=== PATIENT | male | born 1995 | race Caucasian/White ===

== ENCOUNTER 2023-04-07 04:42 | Emergency (ER) | payer MEDICAID, SELFPAY ==
[~2023-04-07] VITALS: Ht 182.9 cm; Wt 93.2 kg
[2023-04-07] MEDS ORDERED: SPIR100T3 PO (06:16)
[2023-04-07] MEDS ORDERED: ESTR2TAB3 PO ×2 (06:16)
[2023-04-07] MEDS ORDERED: HOME MED LIST COMPLETE! XX SCH (06:20)
[2023-04-07 07:41] LABS: HEMATOCRIT 44.7 % (42.0-52.0); HEMOGLOBIN 15.4 g/dl (13.5-17.5); MEAN CORPUSCULAR HEMOGLOBIN 31.3 pg (27.0-33.0); MEAN CORPUSCULAR HGB CONC 34.5 g/dl (32.0-36.5); MEAN CORPUSCULAR VOLUME 90.9 fl (80.0-96.0); PLATELET COUNT, AUTOMATED 344 10^3/uL (150-450); RED BLOOD COUNT 4.92 10^6/uL (4.30-6.10); WHITE BLOOD COUNT 10.1 10^3/uL (4.0-10.0)
[2023-04-07 08:04] LABS: ETHYL ALCOHOL (ETHANOL) 0.003 % (0.000-0.010)
[2023-04-07 08:05] LABS: ACETAMINOPHEN LEVEL < 2.0 UG/ML (10.0-20.0)
[2023-04-07 08:06] LABS: ALBUMIN 4.6 G/DL (3.2-5.2); ALKALINE PHOSPHATASE 50 U/L (46-116); ALT/SGPT 22 U/L (7.0-40); AST/SGOT 11 U/L (<34); BILIRUBIN,DIRECT 0.3 MG/DL (<0.4); BILIRUBIN,TOTAL 0.8 MG/DL (0.3-1.2); BLOOD UREA NITROGEN 28 MG/DL (9-23); CALCIUM LEVEL 10.6 MG/DL (8.5-10.1); CARBON DIOXIDE LEVEL 26 MMOL/L (20-31); CHLORIDE LEVEL 102 MMOL/L (98-107); CPK CREATINE PHOSPHOKINASE 182 U/L (46-171); CREATININE FOR GFR 1.05 MG/DL (0.70-1.30); GLOMERULAR FILTRATION RATE > 60.0 (>60); GLUCOSE, FASTING 96 MG/DL (60-100); POTASSIUM SERUM 4.9 MMOL/L (3.5-5.1); SALICYLATE LEVEL < 3.0 MG/DL (<30); SODIUM LEVEL 135 MMOL/L (136-145); TOTAL PROTEIN 7.8 G/DL (5.7-8.2)
[2023-04-07 08:07] LABS: THYROID STIMULATING HORMONE 1.123 uIU/ML (0.55-4.78)
[2023-04-07] MEDS ORDERED: estradioL 1 MG TAB PO SCH ×2 (09:00→21:00)
[2023-04-07 10:48] LABS: BARBITURATES URINE NEGATIVE (NEGATIVE); BENZODIAZEPINES URINE NEGATIVE (NEGATIVE); COCAINE METABOLITE URINE NEGATIVE (NEGATIVE); METHADONE URINE NEGATIVE (NEGATIVE); OPIATES URINE NEGATIVE (NEGATIVE); PHENCYCLIDINE URINE NEGATIVE (NEGATIVE)
[2023-04-07 10:50] LABS: AMPHETAMINES LEVEL URINE POSITIVE (NEGATIVE); CANNABINOIDS URINE POSITIVE (NEGATIVE)
[2023-04-07] MEDS: SPIRONOLACTONE 50 MG TAB PO SCH ×2 (11:27→15:47)
[2023-04-07] MEDS ORDERED: NICOTINE 21MG/24HR 1 EA TRANSDERMAL TD ONE (11:35)
[2023-04-07 18:07] VITALS: BP 106/61; TEMP 97.7; O2SAT 97
== END 2023-04-07 19:02 | disposition home or self-care (01) ==
LOC: M ED 04:42
DX: F19.10 Other psychoactive substance abuse, uncomplicated (principal); U07.1 COVID-19; F17.200 Nicotine dependence, unspecified, uncomplicated; F64.0 Transsexualism; Z88.1 Allergy status to other antibiotic agents; Z88.8 Allergy status to other drugs, medicaments and biological substances; Z79.899 Other long term (current) drug therapy

== ENCOUNTER 2023-04-17 19:09 | Inpatient (IN) | payer MEDICAID, SELFPAY ==
[~2023-04-17] VITALS: Ht 185.4 cm; Wt 90.8 kg
[~2023-04-17 19:09] MED LIST: ESTR2TAB3 PO; SPIR100T3 PO
[2023-04-17 19:56] LABS: HEMATOCRIT 44.5 % (42.0-52.0); MEAN CORPUSCULAR HEMOGLOBIN 30.9 pg (27.0-33.0); MEAN CORPUSCULAR HGB CONC 33.7 g/dl (32.0-36.5); MEAN CORPUSCULAR VOLUME 91.6 fl (80.0-96.0); PLATELET COUNT, AUTOMATED 406 10^3/uL (150-450); RED BLOOD COUNT 4.86 10^6/uL (4.30-6.10); WHITE BLOOD COUNT 15.8 10^3/uL (4.0-10.0)
[2023-04-17 20:15] LABS: BARBITURATES URINE NEGATIVE (NEGATIVE); COCAINE METABOLITE URINE NEGATIVE (NEGATIVE); METHADONE URINE NEGATIVE (NEGATIVE); OPIATES URINE NEGATIVE (NEGATIVE); PHENCYCLIDINE URINE NEGATIVE (NEGATIVE)
[2023-04-17 20:16] LABS: BENZODIAZEPINES URINE NEGATIVE (NEGATIVE)
[2023-04-17 20:18] LABS: ETHYL ALCOHOL (ETHANOL) < 0.003 % (0.000-0.010)
[2023-04-17 20:19] LABS: ACETAMINOPHEN LEVEL < 2.0 UG/ML (10.0-20.0); ALBUMIN 4.6 G/DL (3.2-5.2); ALKALINE PHOSPHATASE 48 U/L (46-116); ALT/SGPT 36 U/L (7.0-40); AST/SGOT 13 U/L (<34); BILIRUBIN,DIRECT 0.2 MG/DL (<0.4); BILIRUBIN,TOTAL 0.7 MG/DL (0.3-1.2); BLOOD UREA NITROGEN 27 MG/DL (9-23); CARBON DIOXIDE LEVEL 26 MMOL/L (20-31); CHLORIDE LEVEL 103 MMOL/L (98-107); CREATININE FOR GFR 1.33 MG/DL (0.70-1.30); GLOMERULAR FILTRATION RATE > 60.0 (>60); GLUCOSE, FASTING 81 MG/DL (60-100); SALICYLATE LEVEL < 3.0 MG/DL (<30); SODIUM LEVEL 137 MMOL/L (136-145)
[2023-04-17 20:20] LABS: THYROID STIMULATING HORMONE 1.089 uIU/ML (0.55-4.78)
[2023-04-17 20:30] LABS: AMPHETAMINES LEVEL URINE POSITIVE (NEGATIVE); CANNABINOIDS URINE POSITIVE (NEGATIVE)
[2023-04-17] MEDS ORDERED: HOME MED LIST COMPLETE! XX SCH (23:30)
[2023-04-18] MEDS: estradioL 1 MG TAB PO SCH (13:45)
[2023-04-18] MEDS: NICOTINE 21MG/24HR 1 EA TRANSDERMAL TD SCH (13:45)
[2023-04-18] MEDS: SPIRONOLACTONE 50 MG TAB PO SCH ×2 (17:08→21:07)
[2023-04-18] MEDS ORDERED: estradioL 1 MG TAB PO SCH (21:00)
[2023-04-18] MEDS: LORazepam 1 MG TAB PO PRN (22:31)
[2023-04-19] MEDS: estradioL 1 MG TAB PO SCH ×2 (08:18→20:13)
[2023-04-19] MEDS: SPIRONOLACTONE 50 MG TAB PO SCH ×3 (08:18→20:13)
[2023-04-19] MEDS: NICOTINE 21MG/24HR 1 EA TRANSDERMAL TD SCH (08:19)
[2023-04-19 09:27] LABS: BLOOD UREA NITROGEN 16 MG/DL (9-23); CALCIUM LEVEL 9.2 MG/DL (8.5-10.1); CARBON DIOXIDE LEVEL 30 MMOL/L (20-31); CHLORIDE LEVEL 102 MMOL/L (98-107); CREATININE FOR GFR 0.97 MG/DL (0.70-1.30); GLOMERULAR FILTRATION RATE > 60.0 (>60); GLUCOSE, FASTING 98 MG/DL (60-100); POTASSIUM SERUM 4.6 MMOL/L (3.5-5.1); SODIUM LEVEL 138 MMOL/L (136-145)
[2023-04-19] MEDS ORDERED: ACETAMINOPHEN TAB 650MG DOSE (2X325MG) PO PRN (13:50)
[2023-04-19] MEDS ORDERED: MAALOX 30 ML SUSP *UDC PO PRN (13:50)
[2023-04-19] MEDS ORDERED: IBUPROFEN 400MG TAB PO PRN (13:50)
[2023-04-19] MEDS ORDERED: traZODone 50 MG TAB PO PRN (13:50)
[2023-04-19] MEDS ORDERED: MOM 30ML SUSPENSION UDC PO PRN (13:50)
[2023-04-19] MEDS: LORazepam 1 MG TAB PO PRN (13:51)
[2023-04-19 15:40] VITALS: BP 133/83; TEMP 97.8
[2023-04-19] MEDS ORDERED: estradioL 1 MG TAB PO SCH (21:00)
[2023-04-20 06:16] VITALS: BP 110/63; TEMP 97.3; O2SAT 98
[2023-04-20] MEDS ORDERED: estradioL 1 MG TAB PO SCH (09:00)
[2023-04-20] MEDS: estradioL 1 MG TAB PO SCH ×2 (09:20→20:58)
[2023-04-20] MEDS: SPIRONOLACTONE 50 MG TAB PO SCH ×3 (09:21→20:58)
[2023-04-20] MEDS: NICOTINE 21MG/24HR 1 EA TRANSDERMAL TD SCH (09:23)
[2023-04-20 18:00] VITALS: BP 157/80; TEMP 99.8
[2023-04-21] MEDS: diphenhydrAMINE 25MG CAP PO PRN (04:04)
[2023-04-21 06:24] VITALS: BP 114/70; TEMP 97.4; O2SAT 98
[2023-04-21] MEDS: NICOTINE 21MG/24HR 1 EA TRANSDERMAL TD SCH (09:07)
[2023-04-21] MEDS: estradioL 1 MG TAB PO SCH ×2 (09:07→20:24)
[2023-04-21] MEDS: SPIRONOLACTONE 50 MG TAB PO SCH ×3 (09:07→20:25)
[2023-04-21 16:09] VITALS: BP 125/85; TEMP 98.9; O2SAT 100
[2023-04-21] MEDS ORDERED: PRAZOSIN 1 MG CAP PO SCH (21:00)
[2023-04-22 06:36] VITALS: BP 127/70; TEMP 96.8; O2SAT 97
[2023-04-22] MEDS: estradioL 1 MG TAB PO SCH ×2 (09:23→20:48)
[2023-04-22] MEDS: SPIRONOLACTONE 50 MG TAB PO SCH ×3 (09:23→20:48)
[2023-04-22] MEDS: NICOTINE 21MG/24HR 1 EA TRANSDERMAL TD SCH (09:24)
[2023-04-22 16:08] VITALS: BP 134/82; TEMP 98; O2SAT 97
[2023-04-22] MEDS: PRAZOSIN 1 MG CAP PO SCH (20:48)
[2023-04-22] MEDS: traZODone 100 MG TAB PO PRN (23:46)
[2023-04-23 06:38] VITALS: BP 129/80; TEMP 97.5; O2SAT 97
[2023-04-23] MEDS: NICOTINE 21MG/24HR 1 EA TRANSDERMAL TD SCH ×2 (08:38→18:07)
[2023-04-23] MEDS: SPIRONOLACTONE 50 MG TAB PO SCH ×3 (08:40→21:02)
[2023-04-23] MEDS: estradioL 1 MG TAB PO SCH ×2 (08:41→21:01)
[2023-04-23 16:06] VITALS: BP 138/78; TEMP 98.6; O2SAT 98
[2023-04-23] MEDS: PRAZOSIN 1 MG CAP PO SCH (21:01)
[2023-04-23] MEDS: traZODone 100 MG TAB PO PRN (23:03)
[2023-04-24 06:07] VITALS: BP 120/71; TEMP 98.3; O2SAT 100
[2023-04-24] MEDS: SPIRONOLACTONE 50 MG TAB PO SCH ×3 (09:57→20:35)
[2023-04-24] MEDS: NICOTINE 21MG/24HR 1 EA TRANSDERMAL TD SCH (09:58)
[2023-04-24] MEDS: estradioL 1 MG TAB PO SCH ×2 (09:58→20:35)
[2023-04-24 18:59] VITALS: BP 150/75; TEMP 98.9
[2023-04-24] MEDS: PRAZOSIN 1 MG CAP PO SCH (20:36)
[2023-04-24] MEDS: traZODone 100 MG TAB PO PRN (23:01)
[2023-04-25 06:08] VITALS: BP 120/68; TEMP 97.8; O2SAT 98
[2023-04-25 07:04] LABS: CHOLESTEROL RISK RATIO 3.17 (<5); HDL CHOLESTEROL 45.4 MG/DL (>40); LDL CHOLESTEROL 89.6 MG/DL (<100); NON-HDL-C 98.6 MG/DL
[2023-04-25] MEDS: SPIRONOLACTONE 50 MG TAB PO SCH ×3 (08:28→20:53)
[2023-04-25] MEDS: estradioL 1 MG TAB PO SCH ×2 (08:29→20:53)
[2023-04-25] MEDS: NICOTINE 21MG/24HR 1 EA TRANSDERMAL TD SCH ×2 (09:00→12:37)
[2023-04-25 18:44] VITALS: BP 141/79; TEMP 99; O2SAT 97
[2023-04-25 20:53] VITALS: BP 124/90
[2023-04-25] MEDS: PRAZOSIN 1 MG CAP PO SCH (20:53)
[2023-04-25] MEDS: diphenhydrAMINE 25MG CAP PO PRN (22:34)
[2023-04-25] MEDS: traZODone 100 MG TAB PO PRN (22:34)
[2023-04-26 05:59] VITALS: BP 102/70; TEMP 98.3; O2SAT 97
[2023-04-26] MEDS: NICOTINE 21MG/24HR 1 EA TRANSDERMAL TD SCH (09:00)
[2023-04-26] MEDS: estradioL 1 MG TAB PO SCH (09:00)
[2023-04-26] MEDS: SPIRONOLACTONE 50 MG TAB PO SCH (09:00)
[2023-04-26] MEDS ORDERED: MINI1CAP PO (09:55)
[2023-04-26] MEDS ORDERED: ABIL1TAB11 PO ×2 (09:55→09:58)
[2023-04-26] MEDS ORDERED: TRAZ-257 PO ×2 (09:55→09:58)
[2023-04-26] MEDS ORDERED: NICO21PAT TD ×2 (09:55→09:58)
[2023-04-26] MEDS ORDERED: SPIR100T3 PO ×2 (09:55→09:58)
[2023-04-26] MEDS ORDERED: PRAZ2CAP PO (09:58)
== END 2023-04-26 10:36 | disposition home or self-care (01) | DRG 753 ==
LOC: M ED 19:09 → M ED INP 04-19 13:47 → M PSY 04-19 15:20
PROVIDERS: ADMIT Student in an Organized Health Care Education/Training Program; ATTEND Student in an Organized Health Care Education/Training Program
DX: F31.9 Bipolar disorder, unspecified (principal); R45.851 Suicidal ideations; F17.200 Nicotine dependence, unspecified, uncomplicated; F12.90 Cannabis use, unspecified, uncomplicated; F15.90 Other stimulant use, unspecified, uncomplicated; Z59.00 Homelessness unspecified; Z79.899 Other long term (current) drug therapy; Z88.0 Allergy status to penicillin; Z88.2 Allergy status to sulfonamides; K21.9 Gastro-esophageal reflux disease without esophagitis; F13.988 Sedative, hypnotic or anxiolytic use, unspecified with other sedative, hypnotic or anxiolytic-induced disorder; F41.9 Anxiety disorder, unspecified; F43.10 Post-traumatic stress disorder, unspecified

== ENCOUNTER → 2025-01-07 | Outpatient (REF) | payer OTHER, MEDICAID ==
[~2025-01-07] MED LIST changes: +ABIL1TAB11 PO; +MINI1CAP PO; +NICO21PAT TD; +PRAZ2CAP PO; +TRAZ-257 PO
[2025-01-07 18:38] LABS: BASO % 0.5 % (0.0-1.0); EOS # 0.3 10^3/uL (0.0-0.5); EOS % 2.9 % (0.0-3.0); HEMATOCRIT 40.1 % (42.0-52.0); HEMOGLOBIN 13.9 g/dl (13.5-17.5); LYMPH # 1.7 10^3/uL (1.5-5.0); LYMPH % 19.7 % (24.0-44.0); MEAN CORPUSCULAR HEMOGLOBIN 31.4 pg (27.0-33.0); MEAN CORPUSCULAR HGB CONC 34.7 g/dl (32.0-36.5); MEAN CORPUSCULAR VOLUME 90.5 fl (80.0-96.0); MONO # 0.7 10^3/uL (0.0-0.8); MONO % 7.9 % (2.0-8.0); NEUTROPHILS # 5.9 10^3/uL (1.5-8.5); NEUTROPHILS % 68.3 % (36.0-66.0); PLATELET COUNT, AUTOMATED 432 10^3/uL (150-450); RED BLOOD COUNT 4.43 10^6/uL (4.30-6.10); WHITE BLOOD COUNT 8.6 10^3/uL (4.0-10.0)
[2025-01-07 19:02] LABS: HEMOGLOBIN A1c 4.8 % (4.0-6.0)
== END ==
LOC: M LAB REF 17:30
PROVIDERS: ATTEND Nurse Practitioner Family
DX: E66.9 Obesity, unspecified (principal); R53.83 Other fatigue

== ENCOUNTER → 2025-03-21 | Outpatient (CLI) | payer OTHER, MEDICAID | LOC: M WUC 11:57 | PROVIDERS: ATTEND Physician Assistant | DX: M53.3 Sacrococcygeal disorders, not elsewhere classified (principal) ==

== ENCOUNTER → 2025-07-14 | Outpatient (CLI) | payer OTHER ==
[2025-07-14 09:11] LABS: BASO # 0.0 10^3/uL (0.0-0.2); BASO % 0.3 % (0.0-1.0); EOS # 0.3 10^3/uL (0.0-0.5); EOS % 2.4 % (0.0-3.0); LYMPH # 1.9 10^3/uL (1.5-5.0); LYMPH % 15.4 % (24.0-44.0); MONO # 0.8 10^3/uL (0.0-0.8); MONO % 6.7 % (2.0-8.0); NEUTROPHILS # 9.1 10^3/uL (1.5-8.5); NEUTROPHILS % 74.5 % (36.0-66.0); PLATELET COUNT, AUTOMATED 374 10^3/uL (150-450)
[2025-07-14 09:32] LABS: ALT/SGPT 18.0 U/L (7.0-40); AST/SGOT 16.0 U/L (<34); CALCIUM LEVEL 9.7 MG/DL (8.5-10.1); CARBON DIOXIDE LEVEL 29.0 MMOL/L (20-31); CHLORIDE LEVEL 103.0 MMOL/L (98-107); CREATININE FOR GFR 0.92 MG/DL (0.55-1.30); GLOMERULAR FILTRATION RATE 85.9 (>60); MAGNESIUM LEVEL 1.7 MG/DL (1.8-2.4); POTASSIUM SERUM 3.9 MMOL/L (3.5-5.1); SODIUM LEVEL 140.0 MMOL/L (136-145)
[2025-07-14 09:34] LABS: TOTAL 25(OH) VITAMIN D 22.6 NG/ML (20.0-100.0)
== END ==
LOC: M EKG 08:16
PROVIDERS: ATTEND Nurse Practitioner Psychiatric/Mental Health
DX: F90.2 Attention-deficit hyperactivity disorder, combined type (principal)